=== PATIENT | female | born 1985 | race American Indian/Alaskan Native ===

== ENCOUNTER 2017-02-01 16:07 | Emergency (ER) | payer MEDICAID ==
[2017-02-01 16:08] VITALS: BMI 23.2
--- NOTE | 2017-02-01 16:46 | C.PDOC ---
History Of Present Illness 31yo female, presents to ED with complaints of sudden onset sharp chest pain, since 3 hours ago. She states the pain is non-radiating and does not involve a respiratory component. Patient reports she took 2 Aspirin for her pain. She denies any history of heart disease, DVT or PE. She also denies any recent surgeries, control use, current medication use, or tobacco use. No other complaints. Time Seen by Provider: 02/01/17 16:22 Chief Complaint (Nursing): Chest Pain History Per: Patient History/Exam Limitations: no limitations Onset/Duration Of Symptoms: Hrs (4) Current Symptoms Are (Timing): Still Present Quality: "Pain" Past Medical History Reviewed: Historical Data, Nursing Documentation, Vital Signs Vital Signs: Last Vital Signs Temp 98.5 F 02/01/17 16:13 Pulse 88 02/01/17 16:13 Resp 20 02/01/17 16:13 BP 143/87 02/01/17 16:13 Pulse Ox 100 02/01/17 18:33 - Medical History PMH: No Chronic Diseases Surgical History: No Surg Hx - [facility] Procedures EXTRACTION OF POC, LOW CERVICAL, OPEN APPROACH (03/20/15) Family History: States: No Known Family Hx, Unknown Family Hx - Social History Hx Tobacco Use: No Hx Alcohol Use: No Hx Substance Use: No - Immunization History Hx Tetanus Toxoid Vaccination: No Hx Influenza Vaccination: No Hx Pneumococcal Vaccination: No Review Of Systems Except As Marked, All Systems Reviewed And Found Negative. Cardiovascular: Positive for: Chest Pain Respiratory: Negative for: Shortness of Breath Physical Exam - Physical Exam Appears: Non-toxic Skin: Normal Color Neck: Supple Chest: Tenderness (reproducible mid-sternal chest wall tenderness) Cardiovascular: Rhythm Regular, No Murmur ED Course And Treatment - Laboratory Results Result Diagrams: 02/01/17 18:00 02/01/17 18:00 ECG: Interpreted By Me, Viewed By Me ECG Rhythm: Sinus Rhythm, Nonspecific Changes Interpretation Of ECG: Normal intervals, normal axis Rate From EC O2 Sat by Pulse Oximetry: 100 (RA) Pulse Ox Interpretation: Normal Medical Decision Making Medical Decision Making: Impression: Chest pain Plan: -- CXR -- Motrin 600 mg PO Time: 1750 CXR Impression: No focal consolidation, significant pleural effusion, or definite pneumothorax identified. Patient still complaining of chest pain, labs ordered. Time: 183 HEART-Score is 0 Upon reassessment, patient states she gets anxious at times and feels her current presentation may be due to that. She reports improvement of her pain and is stable for discharge home. Disposition Counseled Patient/Family Regarding: Studies Performed, Diagnosis, Need For Followup, Rx Given - Disposition Referrals: [facility] [Outside] Disposition: HOME/ ROUTINE Disposition Time: 18:33 Condition: IMPROVED Additional Instructions: follow up with medical clinic/pmd in 2 days call to make an appointment take medications as prescribed return to hospital if symptoms worsens or progress Prescriptions: Naproxen [Naprosyn] 500 mg PO BID PRN #16 tab PRN Reason: Pain, Moderate (4-7) Instructions: Chest Pain (ED), Chest Pain (DC) Forms: [facility] (Slovenian), General Discharge Instructions - Clinical Impression Clinical Impression: Chest pain - Scribe Statement The provider has reviewed the documentation as recorded by the Gregor Lucas Provider Attestation: All medical record entries made by the Gregor were at my direction and personally dictated by me. I have reviewed the chart and agree that the record accurately reflects my personal performance of the history, physical exam, medical decision making, and the department course for this patient. I have also personally directed, reviewed, and agree with the discharge instructions and disposition.
--- NOTE | 2017-02-01 16:56 | RAD ---
HISTORY: cough COMPARISON: None available. TECHNIQUE: Chest PA and lateral FINDINGS: LUNGS: No focal consolidation. Please note that chest x-ray has limited sensitivity for the detection of pulmonary masses. PLEURA: No significant pleural effusion identified. No definite pneumothorax . CARDIOVASCULAR: Heart size appears within normal limits. OSSEOUS STRUCTURES: Degenerative changes of the spine. VISUALIZED UPPER ABDOMEN: Unremarkable. OTHER FINDINGS: None. IMPRESSION: No focal consolidation, significant pleural effusion, or definite pneumothorax identified.
[2017-02-01] MEDS ORDERED: Acetaminophen-Codeine 300/30 mg Tab PO STA (17:53)
[2017-02-01] MEDS ORDERED: Acetaminophen-Codeine 300/30 mg Tab PO ONE (18:02)
[2017-02-01 18:06] LABS: BASO % 0.5 % (0.0-2.0); EOS % 0.4 % (0.0-4.0); HEMATOCRIT 38.5 % (34.0-47.0); LYMPH # 1.2 K/uL (1.0-4.3); LYMPH % 19.4 % (20.0-40.0); MEAN CORPUSCULAR HGB CONC 33.7 g/dL (33.0-37.0); MEAN PLATELET VOLUME 8.5 fL (7.2-11.7); MONO # 0.5 K/uL (0.0-0.8); MONO % 8.1 % (0.0-10.0); RED CELL DISTRIBUTION WIDTH 13.4 % (11.5-14.5); WHITE BLOOD COUNT 6.1 K/uL (4.8-10.8)
[2017-02-01 18:09] LABS: MEAN CELL VOLUME 94.7 fL (81.0-99.0)
[2017-02-01 18:17] LABS: ALKALINE PHOSPHATASE 78 U/L (38-126); ALT/SGPT 38 U/L (9-52); AST/SGOT 17 U/L (14-36); BILIRUBIN,TOTAL 0.5 mg/dL (0.2-1.3); BLOOD UREA NITROGEN 11 mg/dL (7-17); CALCIUM 8.3 mg/dl (8.6-10.4); CARBON DIOXIDE 27 mmol/L (22-30); CHLORIDE 105 mmol/L (98-107); GFR AFRICAN-AMERICAN > 60; GLUCOSE,RANDOM 85 mg/dL (65-105); POTASSIUM 3.9 mmol/L (3.6-5.2); SODIUM 138 mmol/L (132-148); TOTAL PROTEIN 8.6 g/dL (6.3-8.3)
[2017-02-01 18:38] VITALS: BP 113/75; PULSE 70; RESP 18; TEMP 97.8; O2SAT 99
--- NOTE | 2017-02-04 09:35 | CARD ---
APPROVED REPORT EKG Measurement Heart [id number] WI [id number] <Conclusion> Sinus rhythm with short WI Otherwise normal ECG
== END 2017-02-01 18:53 | disposition home or self-care (01) ==
LOC: C.ER 16:07
DX: R07.9 Chest pain, unspecified (principal)

== ENCOUNTER 2017-07-08 20:52 | Emergency (ER) | payer MEDICAID ==
[2017-07-08 20:52] VITALS: BMI 23.2
[2017-07-08 20:59] VITALS: O2SAT 100
--- NOTE | 2017-07-08 21:23 | C.PDOC ---
History Of Present Illness 31 y/o female with history of panic attacks and taking Buspar in the past. However she discontinued this because it fatigues her so she does not take it. This evening she was at dinner with her and children she she had sudden chest pain with numbness into the face and shoulder. She also complains of rapid breathing that made the chest pain worse. Patient does frequently take caffeine beverages and energy drinks, but denies ilicit substances. She denies any additional stress in her life, though she feels pressured by having three young children and marital difficulties. Chief Complaint (Nursing): Anxiety History Per: Patient Onset/Duration Of Symptoms: Sudden Onset Current Symptoms Are (Timing): Gone Associated Symptoms: Anxiety Recent travel outside of the [place]: No Additional History Per: Patient Past Medical History Vital Signs: Last Vital Signs Temp 98.3 F 07/09/17 01:05 Pulse 71 07/09/17 01:05 Resp 18 07/09/17 01:05 BP 111/44 L 07/09/17 01:05 Pulse Ox 100 07/09/17 01:05 - Medical History PMH: Anxiety, HTN Surgical History: No Surg Hx - [facility] Procedures EXTRACTION OF POC, LOW CERVICAL, OPEN APPROACH (03/20/15) Family History: States: Unknown Family Hx - Social History Hx Tobacco Use: No Hx Alcohol Use: Yes Hx Substance Use: Yes - Immunization History Hx Tetanus Toxoid Vaccination: No Hx Influenza Vaccination: No Hx Pneumococcal Vaccination: No Review Of Systems Except As Marked, All Systems Reviewed And Found Negative. Cardiovascular: Positive for: Chest Pain Respiratory: Positive for: Shortness of Breath Neurological: Positive for: Numbness Physical Exam - Physical Exam Appears: Well, No Acute Distress Skin: Normal Color, Warm, Dry Eye(s): bilateral: Normal Inspection, PERRL, EOMI Nose: Normal Throat: Normal Neck: Normal Chest: No Tenderness Cardiovascular: Rhythm Regular (with occasional extra beats, confirmed on monitor. No pattern. ) Respiratory: Normal Breath Sounds Gastrointestinal/Abdominal: Normal Exam Back: Normal Inspection Extremity: Normal ROM, No Calf Tenderness, Other (normal Kerr's Sign) Pulses: Left Dorsalis Pedis: Normal, Right Dorsalis Pedis: Normal Neurological/Psych: Oriented x3, Normal Speech, Normal Motor ED Course And Treatment - Laboratory Results Result Diagrams: 07/08/17 22:07 07/08/17 22:07 ECG: Interpreted By Me, Viewed By Me Interpretation Of ECG: NSR rate 66 unifocal PVC in a bigeminal pattern. O2 Sat by Pulse Oximetry: 100 (RA) Pulse Ox Interpretation: Normal Medical Decision Making Medical Decision Making: Impression: atypical chest pain, most likely anxiety. We will send routine labs , and give anti-anxiety medication. Plan: - Labs - UDS -Tylenol PO -Xanax PO Disposition - Disposition Referrals: [facility] [Outside] Disposition: HOME/ ROUTINE Disposition Time: 05:13 Condition: GOOD Prescriptions: ALPRAZolam [Xanax] 0.25 mg PO TID PRN #15 tab PRN Reason: Anxiety Instructions: Anxiety, Adult (DC) Forms: [facility] (Beninese) Print Language: PORTUGUESE - Clinical Impression Clinical Impression: Anxiety - Scribe Statement The provider has reviewed the documentation as recorded by the Scribe Baylee Clancy
--- NOTE | 2017-07-08 21:26 | C.PDOC ---
Chief Complaint (Nursing): Anxiety Past Medical History Vital Signs: Last Vital Signs Temp 99.2 F 07/08/17 20:53 Pulse 81 07/08/17 20:53 Resp 16 07/08/17 20:53 BP 138/87 07/08/17 20:53 Pulse Ox 100 07/08/17 20:53 - Medical History PMH: Anxiety, HTN - [facility] Procedures EXTRACTION OF POC, LOW CERVICAL, OPEN APPROACH (03/20/15) Family History: States: Unknown Family Hx - Social History Hx Tobacco Use: No Hx Alcohol Use: Yes Hx Substance Use: Yes - Immunization History Hx Tetanus Toxoid Vaccination: No Hx Influenza Vaccination: No Hx Pneumococcal Vaccination: No ED Course And Treatment O2 Sat by Pulse Oximetry: 100 Disposition - Disposition Forms: [employer] (Tanzanian)
[2017-07-08 22:03] LABS: BARBITURATES, UR NEGATIVE (NEGATIVE); BENZODIAZEPINES, UR NEGATIVE (NEGATIVE); OPIATES, UR NEGATIVE (NEGATIVE); PHENCYCLIDINE, UR NEGATIVE (NEGATIVE)
[2017-07-08 22:07] LABS: SQUAMOUS EPITHIAL 2 /hpf (0-5); URINE BILIRUBIN NEGATIVE (NEGATIVE); URINE BLOOD 1+ (NEGATIVE); URINE CLARITY Clear (Clear); URINE COLOR Straw (YELLOW); URINE GLUCOSE (UA) NORMAL (Normal); URINE LEUKOCYTE ESTERASE TRACE Leu/uL (Negative); URINE PROTEIN NEGATIVE (NEGATIVE); URINE UROBILINOGEN NORMAL mg/dL (0.2-1.0)
[2017-07-08 22:12] LABS: BASO % 0.5 % (0.0-2.0); EOS % 0.4 % (0.0-4.0); LYMPH # 1.4 K/uL (1.0-4.3); LYMPH % 19.4 % (20.0-40.0); MEAN CELL VOLUME 94.5 fL (81.0-99.0); MEAN CORPUSCULAR HEMOGLOBIN 32.3 pg (27.0-31.0); MEAN CORPUSCULAR HGB CONC 34.2 g/dL (33.0-37.0); MEAN PLATELET VOLUME 8.8 fL (7.2-11.7); MONO # 0.6 K/uL (0.0-0.8); MONO % 8.5 % (0.0-10.0); NEUT % 71.2 % (50.0-75.0); RBC 4.03 Mil/uL (3.80-5.20); RED CELL DISTRIBUTION WIDTH 13.1 % (11.5-14.5)
[2017-07-08 22:23] LABS: ALB/GLOB RATIO 1.2 (1.0-2.1); ALBUMIN 4.2 g/dL (3.5-5.0); ALT/SGPT 25 U/L (9-52); AST/SGOT 22 U/L (14-36); BLOOD UREA NITROGEN 9 mg/dL (7-17); CALCIUM 9.8 mg/dl (8.6-10.4); GFR AFRICAN-AMERICAN > 60; GFR NON-AFRICAN AMERICAN > 60
[2017-07-09 01:06] VITALS: BP 111/44; PULSE 71; RESP 18; TEMP 98.3
--- NOTE | 2017-07-09 08:26 | RAD ---
HISTORY: Sepsis Patient COMPARISON: Chest radiograph dated 02/01/2017. FINDINGS: LUNGS: No active pulmonary disease. PLEURA: No significant pleural effusion identified, no pneumothorax apparent. CARDIOVASCULAR: Normal. OSSEOUS STRUCTURES: No significant abnormalities. VISUALIZED UPPER ABDOMEN: Normal. OTHER FINDINGS: None. IMPRESSION: No active disease.
--- NOTE | 2017-07-09 12:01 | CARD ---
APPROVED REPORT EKG Measurement Heart [id number] [id number] <Conclusion> Sinus rhythm with frequent premature ventricular complexes in a pattern of bigeminy Nonspecific T wave abnormality Abnormal ECG
== END 2017-07-09 01:04 | disposition home or self-care (01) ==
LOC: C.ER 20:52
DX: F41.9 Anxiety disorder, unspecified (principal); I10 Essential (primary) hypertension

== ENCOUNTER 2018-04-21 13:19 | Emergency (ER) | payer MEDICAID ==
[2018-04-21 13:19] VITALS: BMI 23.2
[2018-04-21 13:38] VITALS: RESP 18; O2SAT 100
[2018-04-21] MEDS ORDERED: Sodium Chloride 0.9% 1,000 ML IV ONE (13:41)
[2018-04-21 13:59] LABS: BASO % 0.8 % (0.0-2.0); EOS % 0.4 % (0.0-4.0); HEMOGLOBIN 13.9 g/dL (11.0-16.0); LYMPH # 1.2 K/uL (1.0-4.3); MEAN CORPUSCULAR HEMOGLOBIN 33.2 pg (27.0-31.0); MEAN CORPUSCULAR HGB CONC 34.4 g/dL (33.0-37.0); MEAN PLATELET VOLUME 8.3 fL (7.2-11.7); MONO # 0.6 K/uL (0.0-0.8); MONO % 10.6 % (0.0-10.0); NEUT % 67.2 % (50.0-75.0); RBC 4.18 Mil/uL (3.80-5.20); WHITE BLOOD COUNT 5.9 K/uL (4.8-10.8)
--- NOTE | 2018-04-21 14:00 | C.PDOC ---
History Of Present Illness 32 years old female presents to ED for complaints of palpitations that began few hours ago [employer]. Patient states she has past history of palpitations explained by anxiety. Patient also reports she took a test today which came back positive. Denies any other physical complaints. Time Seen by Provider: 04/21/18 13:30 Chief Complaint (Nursing): Palpitations History Per: Patient History/Exam Limitations: no limitations Onset/Duration Of Symptoms: Hrs Current Symptoms Are (Timing): Still Present Recent travel outside of the [place]: No Past Medical History Reviewed: Historical Data, Nursing Documentation, Vital Signs Vital Signs: Last Vital Signs Temp 99.0 F 04/21/18 13:33 Pulse 91 H 04/21/18 13:33 Resp 18 04/21/18 13:33 BP 116/80 04/21/18 13:33 Pulse Ox 100 04/21/18 13:33 - Medical History PMH: Anxiety, HTN Denies: Chronic Kidney Disease - [facility] Procedures EXTRACTION OF POC, LOW CERVICAL, OPEN APPROACH (03/20/15) Family History: States: Unknown Family Hx - Social History Hx Tobacco Use: No Hx Alcohol Use: Yes Hx Substance Use: No - Immunization History Hx Tetanus Toxoid Vaccination: No Hx Influenza Vaccination: No Hx Pneumococcal Vaccination: No Review Of Systems Except As Marked, All Systems Reviewed And Found Negative. Constitutional: Negative for: Fever, Chills Cardiovascular: Positive for: Palpitations Gastrointestinal: Negative for: Nausea, Vomiting, Diarrhea Skin: Negative for: Rash Neurological: Negative for: Weakness, Numbness Physical Exam - Physical Exam Appears: Non-toxic, No Acute Distress Skin: Normal Color, Warm, Dry, No Rash Head: Atraumatic, Normacephalic Eye(s): bilateral: Normal Inspection, PERRL, EOMI Oral Mucosa: Moist Throat: Normal, No Erythema, No Exudate, No Drooling, No Mass Neck: Normal ROM, Supple Chest: Symmetrical, No Tenderness Cardiovascular: Rhythm Regular, No Murmur Respiratory: Normal Breath Sounds, No Rales, No Rhonchi, No Wheezing Gastrointestinal/Abdominal: Soft, No Tenderness, No Guarding, No Rebound Back: Normal Inspection, No CVA Tenderness Extremity: Normal ROM Extremity: Bilateral: Atraumatic, Normal Color And Temperature, Normal ROM Pulses: Left Radial: Normal, Right Radial: Normal Neurological/Psych: Oriented x3, Normal Speech Gait: Steady ED Course And Treatment - Laboratory Results Result Diagrams: 04/21/18 13:55 04/21/18 13:55 O2 Sat by Pulse Oximetry: 100 (RA) Pulse Ox Interpretation: Normal Medical Decision Making Medical Decision Making: Plan: * IV Fluids * EKG * Blood work * Urinalysis EKG: * Normal sinus rhythm at 92 bpm * No ST Elevations * T wave inversion V2 * Change from prior EKG 11/2016 * * No signs of dangerous arytmia, 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 Disposition Counseled Patient/Family Regarding: Studies Performed, Diagnosis, Need For Followup, Rx Given - Disposition [facility] [Outside] Disposition: HOME/ ROUTINE Disposition Time: 14:48 Condition: STABLE Prescriptions: Vit Calc,Iron,Folic [Kpn] 1 each PO DAILY 14 Days tablet Instructions: Medications and , Palpitations, - The First Month Forms: [facility] (Cameroonian), Work Excuse - Clinical Impression Clinical Impression: Palpitations, Early stage of - Scribe Statement The provider has reviewed the documentation as recorded by the Scribe Angel Vazquez All medical record entries made by the Scribe were at my direction and personally dictated by me. I have reviewed the chart and agree that the record accurately reflects my personal performance of the history, physical exam, medical decision making, and the department course for this patient. I have also personally directed, reviewed, and agree with the discharge instructions and disposition.
[2018-04-21 14:03] LABS: MEAN CELL VOLUME 96.6 fL (81.0-99.0)
[2018-04-21 14:14] LABS: BLOOD UREA NITROGEN 7 mg/dL (7-17); CALCIUM 9.2 mg/dl (8.6-10.4); GFR NON-AFRICAN AMERICAN > 60
[2018-04-21] MEDS ORDERED: Sodium Chloride 0.9% 1,000 ML ONE (14:48)
[2018-04-21 15:34] VITALS: BP 120/82; PULSE 71; TEMP 98
--- NOTE | 2018-04-22 22:26 | CARD ---
APPROVED REPORT Date of service: 04/21/2018 EKG Measurement Heart [id number] 140P55 [id number] <Conclusion> Normal sinus rhythm Normal ECG
== END 2018-04-21 15:33 | disposition home or self-care (01) ==
LOC: C.ER 13:19
DX: O26.891 Other specified pregnancy related conditions, first trimester (principal); Z3A.00 Weeks of gestation of pregnancy not specified; R00.2 Palpitations; I10 Essential (primary) hypertension
CPT/HCPCS: 80048; 84484; 84702; 85025; 93005; 96360; 99284; J7030